=== PATIENT | female | born 1980 | race Caucasian/White ===

== ENCOUNTER 2018-10-10 14:45 | Observation (INO) ==
[2018-10-10] MEDS ORDERED: RESTORIL PO PRN (17:58)
[2018-10-10] MEDS ORDERED: TORADOL IV SCH (18:00)
[2018-10-10 18:51] LABS: BASO# 0.05 X1000 (0.0-0.2); BASO% 0.5 % (0.0-0.8); EOS# 0.45 X1000 (0.0-0.7); EOS% 4.4 % (0.0-10.0); HEMATOCRIT 35.8 % (37.0-47.0); HEMOGLOBIN 11.7 g/dL (12.0-16.0); IMM GRAN# 0.02 X1000 (0.0-0.04); IMM GRAN% 0.2 % (0.0-0.5); LYMPH# 2.09 X1000 (1.2-3.4); LYMPH% 20.4 % (20.5-51.1); MCH 30.3 PG (27-31); MCHC 32.7 g/dL (33-37); MCV 92.7 FL (81-99); MONO# 0.75 X1000 (0.11-0.59); MONO% 7.3 % (1.7-9.3); MPV 10.3 FL (7.4-10.4); NEUT# 6.89 X1000 (1.4-6.5); NEUT% 67.2 % (42.2-75.2); PLT 278 X1000 (130-400); RBC 3.86 XMIL (4.2-5.4); RDW 12.4 % (11.5-14.5); WBC 10.25 X1000 (4.8-10.8)
[2018-10-10] MEDS: D5 1/2 NS 1,000 ML IV SCH (19:04)
[2018-10-10 19:08] LABS: AGAP 12; ALBUMIN 3.2 g/dL (3.5-5.0); ALKALINE PHOSPHATASE 77 U/L (32-104); BUN 8 mg/dL (8-22); CALCIUM 8.6 mg/dL (8.8-10.2); CHLORIDE 103 mmol/L (98-107); COSMO 279; CREATININE 0.6 mg/dL (0.5-0.9); ESTIMATED GFR > 60; GLUCOSE 120 mg/dL (70-104); GOT 13 U/L (10-30); GPT 12 U/L (10-36); POTASSIUM 3.5 mmol/L (3.5-5.1); SODIUM 140 mmol/L (136-145); TCO2 25 mmol/L (25-35); TOTAL PROTEIN 6.5 g/dL (6.3-8.3)
[2018-10-10 19:53] LABS: BILIRUBIN URINE NEGATIVE (NEGATIVE); BLOOD URINE NEGATIVE (NEGATIVE); CLARITY CLEAR (CLEAR); COLOR YELLOW; GLUCOSE URINE NEGATIVE (NEGATIVE); KETONE URINE NEGATIVE (NEGATIVE); LEUKOCYTES URINE NEGATIVE (NEGATIVE); NITRITE URINE NEGATIVE (NEGATIVE); PH URINE 6.5; PROTEIN URINE NEGATIVE (NEGATIVE); UROBILINOGEN URINE NORMAL
[2018-10-10 19:55] LABS: URINE SOURCE CLEAN CATCH
[2018-10-10 19:56] LABS: URINE BACTERIA NEGATIVE /HFP; URINE CAST NONE SEEN /LPF; URINE CRYSTAL NONE SEEN /HPF; URINE EPITHELIAL CELLS <10 /HPF (<10); URINE RBC <10 /HPF (<10); URINE WBC <10 /HPF (<10); URINE YEAST NONE SEEN /HPF
[2018-10-10 20:35] LABS: UR AMPHETAMINES QUAL PRESUMPTIVE POSITIVE (NONE DETECT); UR BARBITUATES QUAL NONE DETECTED (NONE DETECT); UR BENZODIAZEPIN QUAL NONE DETECTED (NONE DETECT); UR CANNABINOIDS QUAL PRESUMPTIVE POSITIVE (NONE DETECT); UR COCAINE QUAL NONE DETECTED (NONE DETECT); UR METHADONE QUAL NONE DETECTED (NONE DETECT); UR METHAMPHETAMINE QUAL NONE DETECTED (NONE DETECT); UR OPIATES QUAL PRESUMPTIVE POSITIVE (NONE DETECT); UR OXYCODONE QUAL PRESUMPTIVE POSITIVE (NONE DETECT); UR PCP QUAL NONE DETECTED (NONE DETECT); UR PROPOXYPHENE QUAL NONE DETECTED (NONE DETECT); UR TCA QUAL NONE DETECTED (NONE DETECT)
[2018-10-11] MEDS: D5 1/2 NS 1,000 ML IV SCH ×3 (02:10→22:33)
[2018-10-11] MEDS: TORADOL IV PRN ×3 (08:35→20:14)
--- NOTE | 2018-10-11 13:00 | Diag Imaging Result Doc PS360 ---
EXAM: CT ABD/PELVIS W/PO AND IV CON INDICATION: diverticulitis TECHNIQUE: This exam was performed using automated exposure control, adjustment of mA or kV according to patient size, and/or use of iterative reconstruction technique. COMPARISON: None. FINDINGS: There is patchy airspace consolidation involving both lower lobes and also a small focus in the right middle lobe consistent with pneumonia. There are many tree-in-bud opacities at the lung bases which indicates bronchiolitis. The liver, gallbladder, spleen, pancreas, kidneys, and urinary bladder are unremarkable. There are fluid-filled loops of small bowel throughout the abdomen with numerous small air-fluid levels. There is only mild distention. This is nonspecific but probably represents enteritis with associated mild generalized ileus. There is no evidence of diverticulitis. There is no free abdominal gas or significant free fluid. There has been a prior hysterectomy. IMPRESSION: 1.Patchy airspace consolidation at both lung bases indicating pneumonia as detailed above. 2.Nonspecific fluid and gas-filled loops of small bowel throughout the abdomen that probably represents enteritis with associated generalized mild ileus. Please correlate clinically. Electronically signed by Darren Ortega 10/11/2018 12:58 PM
--- NOTE | 2018-10-11 14:43 | HISTORY AND PHYSICAL ---
CHIEF COMPLAINT: Nausea and vomiting. HISTORY OF PRESENT ILLNESS: The patient is a 38-year-old female who admits that she has been seen multiple times by her primary care off and on over the last several weeks. She has had increased cough, congestion, increased nausea and vomiting, and abdominal pain. She states that she has lost 13 pounds over the past couple of months. She has been on several different antibiotics. She denies any blood in her stool, blood in her urine. She denies any chills, does state that she has had some weight loss occasionally. SOCIAL HISTORY: Patient is . She is unemployed. Lives at home in [place]. ALLERGIES: NyQuil. MEDICATIONS: She is on Restoril p.r.n. She is on no current prescription medications. She does not have prescription medication for pain medication or amphetamines. FAMILY HISTORY: Noncontributory. REVIEW OF SYSTEMS: As noted above, positive cough, congestion, increased work of breathing, increased shortness of breath, abdominal pain, nausea, vomiting, weight loss, fevers. She notes all of this has been going on for the past 2-3 months. She denies any dysuria. No frequency, urgency, hesitancy, polyuria, polydipsia. Denies skin rashes or weight gain. She does have weight loss. She denies any swelling of her lower extremities. Denies any headaches, focalized numbness, tingling, or weakness. PHYSICAL EXAMINATION: VITAL SIGNS: Reviewed and stable. GENERAL: The patient is awake, alert. She is in no current respiratory distress. HEENT: Normocephalic, atraumatic. NECK: Supple. CARDIOVASCULAR: Regular rate. No murmurs. CHEST: Clear and nonlabored. ABDOMEN: Soft, relatively nontender, nondistended. No masses. No hepatosplenomegaly. EXTREMITIES: Moves all extremities. NEUROLOGIC: No focal changes. SKIN: Warm and dry. No rashes. LABORATORY: Reviewed. Urine drug screen was positive for amphetamines as well as opiates. ASSESSMENT: 1. Abdominal pain. 2. Weight loss. 3. History of diverticulitis. 4. Fever. 5. Abnormal urine drug screen. 6. Others. PLAN: We will admit patient to the hospital. cc: Tomasz Cochran MD
[2018-10-11] MEDS: ZOFRAN IV PRN (20:13)
[2018-10-12] MEDS: TORADOL IV PRN ×2 (02:04→08:11)
[2018-10-12] MEDS: ZOFRAN IV PRN ×2 (02:04→08:11)
[2018-10-12] MEDS: D5 1/2 NS 1,000 ML IV SCH (06:33)
[2018-10-12 07:56] VITALS: BP 105/61
[2018-10-12] MEDS ORDERED: D5 1/2 NS 1,000 ML IV SCH (08:29)
--- NOTE | 2018-10-13 05:04 | DISCHARGE SUMMARY ---
ADMISSION DATE: 10/10/2018 DISCHARGE DATE: 10/12/2018 DISCHARGE DIAGNOSES: 1. Nausea and vomiting. 2. Abdominal pain. 3. Weight loss. 4. Dehydration resolved. CONSULTATIONS: None. PROCEDURE: None. BRIEF HOSPITAL COURSE: The patient is a 38-year-old female who presented to the ER and subsequently was admitted to the hospital with 13 pound weight loss over the last several weeks with nausea, vomiting, and abdominal pain. Thankfully, her symptoms improved. CT scan was essentially negative with questionable enteritis but no blockages. No masses. She was not placed on antibiotics, as she has been on antibiotics several times in the most recent past. Thankfully, all of her tests were negative. Her labs were negative. After given IV fluids , she was able to start eating and drinking. On discharge, she was feeling better. She had eaten lunch and was asking to go home. DISPOSITION: Patient will be discharged home. Discussed with her to continue to eat a GI soft diet over the next several days to allow her to improve. Discussed the importance of avoidance of opiates as well as benzo's. She will follow up outpatient with her primary care as needed. cc: Tomasz Cochran MD MTDD
== END 2018-10-12 13:04 | disposition home or self-care (01) ==
LOC: P.DIRADM 14:45 → INTOOBSV 14:45 → P.MEDSURG 17:32
PROVIDERS: ADMIT Family Medicine; ATTEND Family Medicine
CPT/HCPCS: 74177; 80053; 80104; 80301; 80305; 81001; 85025; 86698; 86777; 86778; A9270; G0431; G0434; G0477; J1885; J2405; Q9967

== ENCOUNTER 2018-11-14 11:40 | Inpatient (IN) ==
[2018-11-14] MEDS ORDERED: MOTRIN PO PRN (12:06)
[2018-11-14] MEDS ORDERED: DULCOLAX PR PRN (12:06)
[2018-11-14] MEDS ORDERED: DESYREL PO PRN (12:06)
[2018-11-14] MEDS ORDERED: PHENOBARBITAL IV PRN (12:06)
[2018-11-14] MEDS ORDERED: D5W 1,000 ML IV PRN (12:06)
[2018-11-14] MEDS ORDERED: TUBERSOL ID ONE (12:06)
[2018-11-14] MEDS ORDERED: SENOKOT PO PRN (12:06)
[2018-11-14] MEDS ORDERED: BENTYL PO PRN (12:06)
[2018-11-14] MEDS ORDERED: NICODERM PATCH TD PRN (12:06)
[2018-11-14] MEDS ORDERED: IMODIUM PO PRN (12:06)
[2018-11-14] MEDS: SUBOXONE 2 MG/0.5 MG FILM SL SCH (13:10)
[2018-11-14] MEDS: LIBRIUM PO PRN ×2 (13:10→20:07)
[2018-11-14] MEDS: ATARAX PO PRN (13:10)
[2018-11-14 13:22] LABS: URINE SOURCE CLEAN CATCH
[2018-11-14 13:40] LABS: BILIRUBIN URINE NEGATIVE (NEGATIVE); BLOOD URINE NEGATIVE (NEGATIVE); CLARITY CLEAR (CLEAR); COLOR YELLOW; GLUCOSE URINE NEGATIVE (NEGATIVE); KETONE URINE NEGATIVE (NEGATIVE); LEUKOCYTES URINE NEGATIVE (NEGATIVE); NITRITE URINE NEGATIVE (NEGATIVE); PROTEIN URINE NEGATIVE (NEGATIVE); UROBILINOGEN URINE NORMAL
[2018-11-14 13:44] LABS: UR AMPHETAMINES QUAL NONE DETECTED (NONE DETECT); UR BARBITUATES QUAL NONE DETECTED (NONE DETECT); UR BENZODIAZEPIN QUAL NONE DETECTED (NONE DETECT); UR CANNABINOIDS QUAL PRESUMPTIVE POSITIVE (NONE DETECT); UR COCAINE QUAL NONE DETECTED (NONE DETECT); UR METHADONE QUAL NONE DETECTED (NONE DETECT); UR METHAMPHETAMINE QUAL NONE DETECTED (NONE DETECT); UR OPIATES QUAL PRESUMPTIVE POSITIVE (NONE DETECT); UR OXYCODONE QUAL PRESUMPTIVE POSITIVE (NONE DETECT); UR PCP QUAL NONE DETECTED (NONE DETECT); UR PROPOXYPHENE QUAL NONE DETECTED (NONE DETECT); UR TCA QUAL NONE DETECTED (NONE DETECT)
[2018-11-14 14:07] LABS: HEMATOCRIT 41.2 % (37.0-47.0); HEMOGLOBIN 13.6 g/dL (12.0-16.0); MCH 30.4 PG (27-31); MCV 92.2 FL (81-99); MPV 10.2 FL (7.4-10.4); RBC 4.47 XMIL (4.2-5.4); RDW 13.1 % (11.5-14.5); WBC 6.74 X1000 (4.8-10.8)
[2018-11-14 14:28] LABS: AMYLASE 66 U/L (20-200); LIPASE 23 U/L (13-60)
[2018-11-14 14:30] LABS: AGAP 11; ALBUMIN 4.6 g/dL (3.5-5.0); ALKALINE PHOSPHATASE 75 U/L (32-104); BUN 12 mg/dL (8-22); CHLORIDE 98 mmol/L (98-107); COSMO 278; CREATININE 0.8 mg/dL (0.5-0.9); ESTIMATED GFR > 60; GLUCOSE 105 mg/dL (70-104); GOT 19 U/L (10-30); GPT 16 U/L (10-36); POTASSIUM 4.8 mmol/L (3.5-5.1); SODIUM 139 mmol/L (136-145); TCO2 30 mmol/L (25-35); TOTAL PROTEIN 7.5 g/dL (6.3-8.3)
[2018-11-14 14:33] LABS: INR 0.91; PROTIME 12.7 Seconds (11.0-16.0)
[2018-11-14] MEDS: TYLENOL PO PRN (15:47)
[2018-11-14] MEDS: ZOFRAN IV PRN ×2 (15:49→20:18)
[2018-11-14] MEDS: ROBAXIN PO PRN (16:56)
[2018-11-14] MEDS: SINEMET 25/100 PO PRN (20:07)
[2018-11-14] MEDS: SEROQUEL PO PRN (21:44)
[2018-11-15] MEDS: SUBOXONE 2 MG/0.5 MG FILM SL SCH (00:16)
[2018-11-15] MEDS: ZOFRAN IV PRN ×2 (01:07→11:54)
[2018-11-15] MEDS: MAALOX PLUS LIQUID PO PRN ×2 (03:53→11:53)
[2018-11-15] MEDS: PROTONIX PO SCH (06:20)
[2018-11-15] MEDS: LIBRIUM PO PRN (07:47)
[2018-11-15] MEDS: THERA M PLUS PO SCH (09:03)
[2018-11-15] MEDS: VITAMIN B-1 PO SCH (09:03)
[2018-11-15] MEDS: FOLIC ACID PO SCH (09:03)
[2018-11-15] MEDS: LIBRIUM PO SCH ×4 (09:10→21:09)
[2018-11-15] MEDS: ATARAX PO PRN ×2 (12:12→19:41)
[2018-11-15] MEDS ORDERED: TORADOL IV PRN (14:42)
[2018-11-15] MEDS: ZOFRAN ODT PO PRN (19:03)
[2018-11-15] MEDS: TYLENOL PO PRN (19:03)
[2018-11-15] MEDS: SINEMET 25/100 PO PRN (21:10)
[2018-11-15] MEDS: SEROQUEL PO PRN (21:10)
--- NOTE | 2018-11-16 00:35 | PROGRESS NOTE ---
DATE: 11/15/2018 SUBJECTIVE: Patient notes that she feels terrible. She is having lots of muscle aches and muscle spasms. Denies any fevers, chills. Denies any dysuria or frequency. Denies constipation, melena, hematochezia. States that she is unsure if she is going to stay in the hospital. PHYSICAL EXAMINATION: Vital Signs: Reviewed. Temp 97 degrees, pulse 70, respiratory 18, BP 107/72. General: Patient is awake, alert, currently she is in no respiratory distress. She is somewhat ill appearing. As she is very fidgety and nervous, she is unable sit still. She is difficult to get to concentrate on questions and answer. HEENT: Normocephalic. Neck: Supple. Cardiovascular: Regular rate. Chest: Equal breath sounds bilaterally. Clear and nonlabored. Abdomen: Soft, nondistended, nontender. Extremities: Moves all extremities. Neurologic: No changes. ASSESSMENT: 1. Nausea, vomiting. 2. Abdominal pain. 3. Myalgias. 4. Paresthesias. 5. Opiate abuse, withdrawal, and stabilization. 6. Bipolar. PLAN: We will continue patient in the hospital. She does not want to be on Suboxone or to discharge home on Suboxone, so we will stop this and switch her to Librium taper. Use Toradol as needed. Continue counseling. Hopefully, she will continue to improve and will stay in the hospital to allow this improvement to take place. cc: Tomasz Cochran MD
[2018-11-16] MEDS: LIBRIUM PO SCH ×4 (03:12→20:19)
[2018-11-16] MEDS: PROTONIX PO SCH (06:16)
[2018-11-16] MEDS: FOLIC ACID PO SCH (10:06)
[2018-11-16] MEDS: THERA M PLUS PO SCH (10:06)
[2018-11-16] MEDS: VITAMIN B-1 PO SCH (10:06)
[2018-11-16] MEDS: ZOFRAN ODT PO PRN ×2 (10:07→15:20)
[2018-11-16] MEDS: SINEMET 25/100 PO PRN ×2 (11:15→20:19)
[2018-11-16] MEDS: TYLENOL PO PRN ×2 (11:15→15:20)
[2018-11-16] MEDS: ROBAXIN PO PRN (15:20)
[2018-11-16] MEDS: ATARAX PO PRN (17:34)
[2018-11-16] MEDS: SEROQUEL PO PRN (20:19)
--- NOTE | 2018-11-17 00:55 | PROGRESS NOTE ---
DATE: 11/16/2018 SUBJECTIVE: Patient notes that she is feeling a little bit better. She is still jittery, nervous, fidgety, anxious. Denies any chest pain, palpitations. PHYSICAL EXAMINATION: Vital Signs: Reviewed. Temperature 97 degrees, pulse 80, respiratory 18, BP 82/60 to 113/48. General: Patient is awake, alert. She is in no current distress. She is quite fidgety. Was quite difficult to gloria her around the hospital room to examine her or to have her answer questions. HEENT: Normocephalic. Neck: Supple. Cardiovascular: No murmurs. Chest: Clear, nonlabored. Abdomen: Soft, nondistended. ASSESSMENT: 1. Nausea, vomiting. 2. Abdominal pain. 3. Myalgias. 4. Paresthesias. 5. Paroxysmal sweating. 6. Polysubstance use and abuse. PLAN: We will continue to wean Suboxone as tolerated. Librium as tolerated. Hopefully, patient can be discharged home over the next 1 to 2 days. We will continue counseling. cc: Tomasz Cochran MD
[2018-11-17] MEDS: LIBRIUM PO SCH ×2 (03:05→09:33)
[2018-11-17] MEDS: PROTONIX PO SCH (06:23)
[2018-11-17 07:59] VITALS: BP 110/65
[2018-11-17] MEDS: VITAMIN B-1 PO SCH (09:32)
[2018-11-17] MEDS: THERA M PLUS PO SCH (09:33)
[2018-11-17] MEDS: FOLIC ACID PO SCH (09:33)
[2018-11-17] MEDS ORDERED: LIBRIUM PO SCH (13:00)
--- NOTE | 2018-11-17 16:06 | HISTORY AND PHYSICAL ---
CHIEF COMPLAINT: Nausea, vomiting. HISTORY OF PRESENT ILLNESS: The patient is a 38-year-old female who presented to [facility] secondary to nausea, vomiting, abdominal pain, tremors, and myalgias. States she has been abusing opiates and it has created problems in her life. She has been trying to stop but her withdrawal symptoms become too severe. SOCIAL HISTORY: She is . She is unemployed. Lives at home in [place]. In fact, lives at home with her ex- and their child. PAST MEDICAL HISTORY: Recurrent diverticulitis, interstitial cystitis, bipolar, anxiety, depression. MEDICATIONS: She is on no current prescription medications. ALLERGIES: No known allergies. REVIEW OF SYSTEMS: CINA score is 12 secondary to crampy abdominal pain, mild nausea, severe muscle aches, frequent restlessness. Denies any chest pain, palpitations. Denies any fevers or chills. Denies dysuria, urinary frequency, or urgency. States she has frequent episodes of muscle aches, frequent changes in temperature. Denies any vomiting. States she has nausea. Notes that if she stays off opiates longer vomiting begins. Denies any hematochezia, melena, hematemesis. FAMILY HISTORY: Noncontributory. SUBSTANCE ABUSE HISTORY: The patient currently is due to her drug use. She notes that she has a long history of alcohol use; has not been drinking lately. She does smoke marijuana daily. She started stimulants at age 20, has not used in the past 15 to 20 years. Started opiates at age 20. Apparently she has been taking at least 7 Percocet a day. Started smoking in her teenage years. Currently smokes half a pack a day. PHYSICAL EXAMINATION: VITAL SIGNS: Reviewed. GENERAL: She is awake, alert, oriented. She is in no current respiratory distress. She is very fidgety, jittery, anxious. She is unable to sit still. Frequently had to be redirected to answer questions. HEENT: Normocephalic, atraumatic. JAYLEN. NECK: Supple. No JVD. CARDIOVASCULAR: Regular rate. No murmurs. CHEST: Clear. ABDOMEN: Soft, nondistended. EXTREMITIES: Moves all extremities. NEUROLOGIC: No focal changes. SKIN: Warm, dry. No rashes. LABS: Pending. ASSESSMENT: 1. Nausea, vomiting. 2. Abdominal pain. 3. Myalgias. 4. Paresthesias. 5. Paroxysmal sweating. 6. Opiate abuse, withdrawal, and stabilization. 7. Bipolar. PLAN: We will admit patient to the hospital. We will start on Librium taper. She does not want to be discharged on Suboxone so we will not start this. Discussed with the patient current treatment plan. Will use Toradol as needed. Discussed that she should consider medication assisted therapy, i.e. naltrexone as an outpatient. The patient currently is refusing. Further orders as needed. cc: Tomasz Cochran MD
--- NOTE | 2018-11-17 19:08 | DISCHARGE SUMMARY ---
ADMISSION DATE: 11/14/2018 DISCHARGE DATE: 11/17/2018 DISCHARGE DIAGNOSES: 1. Nausea and vomiting. 2. Abdominal pain. 3. Myalgias. 4. Paresthesias. 5. Opiate abuse withdrawal and stabilization. 6. Chronic anxiety, depression. 7. Bipolar. 8. Recurrent diverticulitis. CONSULTATIONS: None. PROCEDURES: None. BRIEF HOSPITAL COURSE: Patient is a 38-year-old female who presented to [facility] secondary to nausea, vomiting, abdominal pain, tremors, myalgias, paresthesias. Notes that she has been using and abusing opiates. She has been trying to stop, but her withdrawal symptoms become too severe and she has to start back. States she is trying to get her life back together and stop abusing opiates. The patient was admitted to the hospital. She was placed on Librium taper. She states that she wants to be off of everything and not go home on Suboxone or any other treatment. Her hospital course was slow but steady. She was able to wean down on Librium. On discharge, she is awake and alert. She is in no distress. Overall, she is feeling better. DISPOSITION: We will discharge patient home. Discussed with her that if her symptoms become severe, she certainly should consider MAT therapy at that point. We will discharge her at this point with nothing. Discussed with her that she does need to follow up outpatient with treatment facility of choice. She needs outpatient life counseling as well as drug counseling. Discussed that very few people are successful without any form of medication-assisted therapy. TIME SPENT: Greater than 30 minutes was spent in total care. cc: Tomasz Cochran MD
== END 2018-11-17 13:12 | disposition home or self-care (01) | DRG 897 ==
LOC: P.DIRADM 11:40 → P.MEDSURG 12:12
PROVIDERS: ADMIT Family Medicine; ATTEND Family Medicine
CPT/HCPCS: 80053; 80104; 80301; 80305; 80307; 80320; 82055; 82150; 83690; 84703; 85027; 85610; 86580; A9270; G0431; G0434; G0477; G0480; G6040; J1885; J2405